=== PATIENT | male | born 1980 | race American Indian/Alaskan Native ===

== ENCOUNTER 2021-12-03 09:18 | Emergency (ER) | payer BC ==
[2021-12-03 09:44] VITALS: BP 159/109
[2021-12-03] MEDS ORDERED: dexAMETHasone 20 MG/5 ML VIAL IM ONE ×2 (10:05→12:00)
[2021-12-03] MEDS ORDERED: KETOROLAC 30 MG/1 ML INJ IM ONE ×2 (10:05→12:00)
--- NOTE | 2021-12-03 10:15 | Emergency Department Report ---
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 Patient was required to lift multiple boxes overhead and low to self. Patient was awakened at night by pain 8/10 sharp aching stinging to left lateral shoulder. Patient states now with swelling. Pain is exacerbated by attempted movement. Denies weakness numbness or paralysis. There is no abrasions or lacerations. No chest pain no shortness of breath no dizziness or lightheadedness. He does have history of hypertension and is intermittently adherent to medication regimen. He has not taken [id number] NSAIDs for pain has attempted ED Review of Systems ROS: Stated complaint: LT SHOULDER PAIN Other details as noted in HPI Constitutional: denies: chills, fever Eyes: denies: eye pain, eye discharge, vision change ENT: denies: ear pain, throat pain Respiratory: denies: cough, shortness of breath, wheezing Cardiovascular: as per HPI Endocrine: no symptoms reported Gastrointestinal: denies: abdominal pain, nausea, diarrhea Genitourinary: denies: urgency, dysuria Musculoskeletal: other (Left anterior shoulder pain) Skin: denies: rash, lesions Neurological: denies: headache, weakness, paresthesias Psychiatric: denies: anxiety, depression Hematological/Lymphatic: denies: easy bleeding, easy bruising ED Past Medical Hx - Past Medical History Hx Hypertension: Yes Additional medical history: high cholesterol - Social History Smoking Status: Never Smoker - Medications Home Medications: Home Medications Medication Instructions Recorded Confirmed Last Taken Type Cyclobenzaprine [Flexeril] 10 mg PO TID PRN #30 tab 12/03/21 Unknown Rx Menthol/Camphor [Evergreen Mineral 1 applicatio TP Q6H PRN #1 tube 12/03/21 Unknown Rx Ointment] Naproxen 500 mg PO BID PRN #30 tab 12/03/21 Unknown Rx Upper Extremity Exam - Exam General: Vital signs noted. No distress. Alert and acting appropriately. Shoulder Exam: Yes Shoulder Tenderness, Yes AC Joint Tenderness (AC joint tenderness to deep palpation), No Clavicle Tenderness, No Normal Range of Motion in Shoulder (Range of motion restricted by pain. Pain is reproducible with pronation supination), No Shoulder Deformity Arm Exam: No Arm/Humerus Tenderness, No Arm Deformity Elbow: Yes Normal Range of Motion in Elbow, No Elbow Tenderness, No Elbow Deformity Forearm: No Forearm Tenderness, No Forearm Deformity, No Pain with Pronation, No Pain with Supination Wrist: Yes Normal ROM in Wrist, No Wrist Tenderness, No Wrist Deformity, No Snuffbox Tenderness, No Pain with Axial Thumb Compression Hand: Yes Normal ROM in Digit(s), No Hand Tenderness, No Hand Deformity, No Digit Tenderness, No Digit(s) Deformity, No Tendon Dysfunction CMS Exam: No Broken Skin, No Normal Distal Pulses, No Normal Capillary Refill, No Normal Distal Sensation ED Course Vital Signs 12/03/21 09:41 Temperature 98.4 F Pulse Rate 95 H Respiratory 18 Rate Blood Pressure 159/109 O2 Sat by Pulse 98 Oximetry ED Medical Decision Making - Radiology Data Radiology results: report reviewed, image reviewed Left shoulder 3 views INDICATION: Pain FINDINGS: Glenohumeral joint and AC joint appear normal. No acute fracture or dislocation. Signer Name: Musa Cha MD Signed: 12/03/2021 10:57 AM Workstation Name: [id number] Transcribed By: Dictated By: ADRIENNE CHA MD Electronically Authenticated By: ADRIENNE CHA MD Signed Date/Time: 12/03/21 1057 DD/ 1056 TD/TT: - Medical Decision Making Shoulder x-ray normal no subluxation no dislocation no soft tissue. Pain is improved with medication given in ED plan DC to home with prescriptions. Moist heat therapy as directed. Follow-up with your doctor in 2 to 3 days. Diagnosis shoulder sprain. Patient verbalized agreement understanding of discharge plan. Patient DC'd home in stable condition at this time. Critical care attestation.: If time is entered above; I have spent that time in minutes in the direct care of this critically ill patient, excluding procedure time. ED Disposition Clinical Impression: Shoulder sprain Qualifiers: Encounter type: initial encounter Shoulder sprain type: unspecified sprain Laterality: left Qualified Code(s): S43.402A - Unspecified sprain of left shoulder joint, initial encounter Disposition: HOME / SELF CARE / HOMELESS Is pt being admited?: No Does the pt Need Aspirin: No Condition: Stable Instructions: Shoulder Sprain Additional Instructions: Take medication as prescribed, shoulder exercises as directed follow-up with your doctor in 2 to 3 days. Return to emergency department should symptoms worsen. Prescriptions: Cyclobenzaprine [Flexeril] 10 mg PO TID PRN #30 tab PRN Reason: Muscle Spasm Naproxen 500 mg PO BID PRN #30 tab PRN Reason: Pain Menthol/Camphor [Evergreen Mineral Ointment] 1 applicatio TP Q6H PRN #1 tube PRN Reason: Pain Referrals: PRIMARY CAREMD [Primary Care Provider] - 3-5 Days DA FLORENTINO MD [Staff Physician] - 3-5 Days SEAN ARAUJO MD [Staff Physician] - 3-5 Days Forms: Work/School Release Form(ED) Time of Disposition: 12:28
--- NOTE | 2021-12-03 11:01 | XRay Report ---
Left shoulder 3 views INDICATION: Pain FINDINGS: Glenohumeral joint and AC joint appear normal. No acute fracture or dislocation. Signer Name: Musa Ayala MD Signed: 12/03/2021 10:57 AM Workstation Name: [id number]
== END 2021-12-03 12:45 | disposition home or self-care (01) ==
LOC: ED 09:18
DX: S46.912A Strain of unspecified muscle, fascia and tendon at shoulder and upper arm level, left arm, initial encounter (principal); I10 Essential (primary) hypertension; E78.00 Pure hypercholesterolemia, unspecified; X50.0XXA Overexertion from strenuous movement or load, initial encounter; Y93.89 Activity, other specified; Y92.89 Other specified places as the place of occurrence of the external cause; Y99.8 Other external cause status
CPT/HCPCS: 73030; 96372; 99283; J1100; J1885